=== PATIENT | female | born 1995 | race Caucasian/White ===

== ENCOUNTER 2016-10-14 15:26 | Emergency (ER) | payer MEDICAID ==
[~2016-10-14] VITALS: Ht 160 cm; Wt 56.2 kg
[2016-10-14] MEDS ORDERED: ACETAMINOPHEN 325 MG TABLET PO ONE (16:30)
[2016-10-14] MEDS ORDERED: SODIUM CHLORIDE 0.9% 1,000ML IVBOLUS ONE (16:30)
[2016-10-14] MEDS ORDERED: ONDANSETRON 2MG/ML, 2ML IVPush ONE (16:30)
[2016-10-14] MEDS ORDERED: ONDANSETRON 2MG/ML, 2ML ONE (16:32)
[2016-10-14] MEDS ORDERED: ACETAMINOPHEN 325 MG TABLET ONE (16:32)
[2016-10-14 16:35] LABS: BLOOD UREA NITROGEN 9 mg/dL (7-18)
[2016-10-14 16:38] VITALS: BP 98/70
== END 2016-10-14 17:42 | disposition home or self-care (01) ==
LOC: ED 16:58
DX: O20.0 Threatened abortion (principal); Z3A.10 10 weeks gestation of pregnancy
CPT/HCPCS: 36415; 76801; 80048; 81001; 82040; 84702; 85025; 87086; 96361; 96374; 99285; J2405; J7030; 96360

== ENCOUNTER 2017-02-15 13:57 | Outpatient (CLI) | payer MEDICAID ==
[~2017-02-15] VITALS: Ht 160 cm; Wt 61.3 kg
[2017-02-15 14:10] VITALS: BP 111/63
[2017-02-15 15:11] LABS: DAU SCREEN DISCLAIMER
[2017-02-15] MEDS ORDERED: METR70GE14 VG ×2 (16:07→16:08)
== END 2017-02-15 16:15 | disposition home or self-care (01) ==
LOC: LDOP 13:57
PROVIDERS: ATTEND Student in an Organized Health Care Education/Training Program
DX: O42.912 Preterm premature rupture of membranes, unspecified as to length of time between rupture and onset of labor, second trimester (principal); O99.342 Other mental disorders complicating pregnancy, second trimester; F32.9 Major depressive disorder, single episode, unspecified; Z3A.25 25 weeks gestation of pregnancy
CPT/HCPCS: 59025; 80307; 81003; 87210; 87491; 87591; 87808; 89060; 99211; G0463; Q0114

== ENCOUNTER 2017-03-09 20:16 | Outpatient (CLI) | payer MEDICAID ==
[~2017-03-09] VITALS: Ht 160 cm; Wt 60.0 kg
[~2017-03-09 20:16] MED LIST: METR70GE14 VG
[2017-03-09] MEDS ORDERED: DIPHENHYDRAMINE 25 MG CAPSULE ONE (20:51)
[2017-03-09] MEDS ORDERED: DIPHENHYDRAMINE 25 MG CAPSULE PO ONE (21:00)
== END 2017-03-09 21:00 | disposition home or self-care (01) ==
LOC: LDOP 20:16
PROVIDERS: ATTEND Obstetrics & Gynecology
DX: O46.93 Antepartum hemorrhage, unspecified, third trimester (principal); O99.343 Other mental disorders complicating pregnancy, third trimester; O12.03 Gestational edema, third trimester; F32.9 Major depressive disorder, single episode, unspecified; Z3A.29 29 weeks gestation of pregnancy
CPT/HCPCS: 59025; 99211; G0463

== ENCOUNTER 2017-05-15 04:11 | Outpatient (CLI) | payer MEDICAID ==
[~2017-05-15] VITALS: Ht 160 cm; Wt 72.0 kg
== END 2017-05-15 05:25 | disposition home or self-care (01) ==
LOC: LDOP 04:11
PROVIDERS: ATTEND Obstetrics & Gynecology
DX: O26.893 Other specified pregnancy related conditions, third trimester (principal); O99.343 Other mental disorders complicating pregnancy, third trimester; O62.9 Abnormality of forces of labor, unspecified; R10.9 Unspecified abdominal pain; F32.9 Major depressive disorder, single episode, unspecified; Z3A.36 36 weeks gestation of pregnancy
CPT/HCPCS: 59025; 99211; G0463

== ENCOUNTER 2017-05-15 21:38 | Inpatient (IN) | payer MEDICAID ==
[~2017-05-15] VITALS: Ht 160 cm; Wt 71.4 kg
[2017-05-15] MEDS ORDERED: OXYTOCIN 30U/ 0.9% NaCL 500ML 500 ML IV SCH (21:57)
[2017-05-15] MEDS ORDERED: LACTATED RINGERS 1,000 ML IV SCH ×2 (21:57→22:00)
[2017-05-15] MEDS ORDERED: METOCLOPRAMIDE 5 MG/ML, 2ML IV ONE (22:00)
[2017-05-15] MEDS ORDERED: LACTATED RINGERS 1,000 ML IVBOLUS ONE (22:00)
[2017-05-15] MEDS ORDERED: SODIUM CITRATE/CITRIC ACID 30 ML UDC PO ONE (22:00)
[2017-05-15] MEDS ORDERED: ONDANSETRON 2MG/ML, 2ML ONE (22:02)
[2017-05-15] MEDS ORDERED: OXYTOCIN 10 UNITS/ML, 1ML ONE (22:02)
[2017-05-15] MEDS ORDERED: CEFAZOLIN 1,000 MG ONE (22:02)
[2017-05-15] MEDS ORDERED: FENTANYL PF 100 MCG/2ML ONE (22:03)
[2017-05-15] MEDS ORDERED: HYDROmorphone 2 MG/ML, 1ML ONE (22:03)
[2017-05-15] MEDS ORDERED: NEWBORN KIT ONE (22:09)
[2017-05-15 22:23] LABS: HEMATOCRIT 28.9 % (34.6-47.8); HEMOGLOBIN 9.5 g/dL (11.7-16.4); WHITE BLOOD COUNT 8.3 x10^3/uL (4.5-13.2)
[2017-05-16] MEDS ORDERED: MISOPROSTOL 200 MCG TABLET PR PRN
[2017-05-16] MEDS ORDERED: ONDANSETRON 2MG/ML, 2ML IV PRN
[2017-05-16] MEDS ORDERED: OXYcodone/APAP 5/325MG TABLET PO PRN
[2017-05-16] MEDS ORDERED: METHYLERGONOVINE 0.2 MG/ML IM PRN
[2017-05-16] MEDS ORDERED: morphine SULFATE 10 MG/ML, 1ML IVPush PRN
[2017-05-16] MEDS ORDERED: ACETAMINOPHEN 325 MG TABLET PO PRN
[2017-05-16] MEDS ORDERED: METOCLOPRAMIDE 5 MG/ML, 2ML ONE (00:02)
[2017-05-16] MEDS ORDERED: DIPHENHYDRAMINE 50 MG/ML, 1ML ONE (00:02)
[2017-05-16] MEDS ORDERED: KETOROLAC 30 MG/1 ML ONE (00:02)
[2017-05-16] MEDS ORDERED: OXYTOCIN 30U/ 0.9% NaCL 500ML 500 ML ONE (00:03)
[2017-05-16] MEDS: KETOROLAC 30 MG/1 ML IV SCH ×5 (00:17→22:10)
[2017-05-16 00:38] LABS: DAU SCREEN DISCLAIMER
[2017-05-16 01:00] VITALS: BP 86/50
[2017-05-16] MEDS: morphine SULFATE 10 MG/ML, 1ML IVPush PRN ×2 (01:39→05:20)
[2017-05-16] MEDS: OXYcodone/APAP 5/325MG TABLET PO PRN ×4 (03:07→19:14)
[2017-05-16 05:00] VITALS: BP 88/51
[2017-05-16] MEDS: LACTATED RINGERS 1,000 ML IV SCH ×5 (07:00→17:00)
[2017-05-16] MEDS: OXYTOCIN 30U/ 0.9% NaCL 500ML 500 ML IV SCH ×2 (07:00→17:00)
[2017-05-16 07:17] LABS: HEMATOCRIT 26.6 % (34.6-47.8); HEMOGLOBIN 8.7 g/dL (11.7-16.4); WHITE BLOOD COUNT 10.3 x10^3/uL (4.5-13.2)
[2017-05-16 07:20] VITALS: BP 83/50
[2017-05-16] MEDS: PRENATAL VIT/IRON/FA 1 EACH TABLET PO SCH (07:58)
[2017-05-16] MEDS: DOCUSATE 100 MG CAPSULE PO PRN ×2 (09:56→19:14)
[2017-05-16 12:02] VITALS: BP 93/53
[2017-05-16 16:08] VITALS: BP 91/51
[2017-05-16 21:00] VITALS: BP 91/53
[2017-05-17] MEDS: OXYTOCIN 30U/ 0.9% NaCL 500ML 500 ML IV SCH (03:00)
[2017-05-17] MEDS: LACTATED RINGERS 1,000 ML IV SCH ×2 (03:00)
[2017-05-17] MEDS: OXYcodone/APAP 5/325MG TABLET PO PRN ×4 (03:43→20:53)
[2017-05-17] MEDS: KETOROLAC 30 MG/1 ML IV SCH ×3 (04:04→10:03)
[2017-05-17 07:55] VITALS: BP 112/68
[2017-05-17] MEDS: DOCUSATE 100 MG CAPSULE PO PRN ×2 (10:03→20:52)
[2017-05-17] MEDS: PRENATAL VIT/IRON/FA 1 EACH TABLET PO SCH (10:03)
[2017-05-17] MEDS: IBUPROFEN 600 MG TABLET PO PRN ×3 (10:17→23:07)
[2017-05-17 20:40] VITALS: BP 103/64
[2017-05-18] MEDS: IBUPROFEN 600 MG TABLET PO PRN (06:23)
[2017-05-18] MEDS: OXYcodone/APAP 5/325MG TABLET PO PRN (06:23)
[2017-05-18 07:30] VITALS: BP 97/65
[2017-05-18] MEDS: PRENATAL VIT/IRON/FA 1 EACH TABLET PO SCH (07:49)
[2017-05-18] MEDS: DOCUSATE 100 MG CAPSULE PO PRN (07:49)
[2017-05-18] MEDS ORDERED: OXYC-302 PO (13:32)
[2017-05-18] MEDS ORDERED: IBUP-1222 PO (13:33)
== END 2017-05-18 14:50 | disposition home or self-care (01) | DRG 766 ==
LOC: LDOP 21:38 → LDIP 21:57 → 2NW 05-16 00:53
PROVIDERS: ADMIT Obstetrics & Gynecology; ATTEND Obstetrics & Gynecology
PROC: 10D00Z1 Extraction of Products of Conception, Low, Open Approach (ICD-10-PCS; principal; 2017-05-15)
DX: O34.211 Maternal care for low transverse scar from previous cesarean delivery (principal); O32.1XX0 Maternal care for breech presentation, not applicable or unspecified; Z37.0 Single live birth; Z3A.38 38 weeks gestation of pregnancy; Z88.0 Allergy status to penicillin
CPT/HCPCS: 36415; 80307; 82803; 85025; 86850; 86900; 86923; J0690; J1170; J1885; J2405; J3010; C1765; G0479; J2270; J2590; J2765; J7120

== ENCOUNTER 2018-06-24 02:58 | Inpatient (IN) | payer MEDICAID ==
[~2018-06-24] VITALS: Ht 160 cm; Wt 74.0 kg
[~2018-06-24 02:58] MED LIST changes: +IBUP-1222 PO; +OXYC-302 PO
[2018-06-24] MEDS ORDERED: METOCLOPRAMIDE 5 MG/ML, 2ML IV ONE (03:00)
[2018-06-24] MEDS ORDERED: LACTATED RINGERS 1,000 ML IVBOLUS ONE (03:00)
[2018-06-24] MEDS ORDERED: SODIUM CITRATE/CITRIC ACID 30 ML UDC PO ONE (03:00)
[2018-06-24] MEDS ORDERED: OXYTOCIN 30U/ 0.9% NaCL 500ML 500 ML IV SCH (03:00)
[2018-06-24] MEDS ORDERED: LACTATED RINGERS 1,000 ML IV SCH ×3 (03:00→05:45)
[2018-06-24] MEDS ORDERED: NEWBORN KIT ONE (03:29)
[2018-06-24] MEDS ORDERED: METOCLOPRAMIDE 5 MG/ML, 2ML ONE (03:30)
[2018-06-24] MEDS ORDERED: OXYTOCIN 30U/ 0.9% NaCL 500ML 500 ML ONE ×2 (03:30→05:42)
[2018-06-24] MEDS ORDERED: SODIUM CITRATE/CITRIC ACID 30 ML UDC ONE (03:30)
[2018-06-24 03:34] LABS: BASOPHILS # (AUTO) 0.03 x10^3/uL (0-0.1); BASOPHILS % (AUTO) 1 % (0-1); EOSINOPHILS # (AUTO) 0.08 x10^3/uL (0-0.4); EOSINOPHILS % (AUTO) 2 % (1-7); LYMPHOCYTES % (AUTO) 31 % (22-44); MD NO; MEAN CORPUSCULAR HEMOGLOBIN 26.8 pg (27.0-34.8); MEAN CORPUSCULAR HGB CONC 33.7 g/dL (32.4-35.8); MEAN CORPUSCULAR VOLUME 79.5 fL (80-100); MEAN PLATELET VOLUME 9.6 fL (7.4-10.4); MONOCYTES # (AUTO) 0.39 x10^3/uL (0.2-0.8); MONOCYTES % (AUTO) 8 % (2-9); NEUTROPHILS # (AUTO) 3.09 x10^3/uL (1.8-6.8); NEUTROPHILS % (AUTO) 60 % (42-75); PLATELET COUNT 225 x10^3/uL (130-400); RED BLOOD COUNT 3.91 x10^6/uL (3.82-5.3); RED CELL DISTRIBUTION WIDTH 16.6 % (9.6-15.2)
[2018-06-24] MEDS ORDERED: ONDANSETRON 2MG/ML, 2ML ONE ×2 (03:54→06:04)
[2018-06-24] MEDS ORDERED: OXYTOCIN 10 UNITS/ML, 1ML ONE (03:54)
[2018-06-24] MEDS ORDERED: FENTANYL PF 100 MCG/2ML ONE (03:54)
[2018-06-24] MEDS ORDERED: CEFAZOLIN 1,000 MG ONE (03:54)
[2018-06-24] MEDS ORDERED: HYDROmorphone 2 MG/ML, 1ML ONE (03:55)
[2018-06-24] MEDS ORDERED: SODIUM CHLORIDE 0.9% PF 10ML ONE ×2 (03:55)
[2018-06-24] MEDS ORDERED: KETOROLAC 30 MG/1 ML ONE (05:55)
[2018-06-24] MEDS ORDERED: METHYLERGONOVINE 0.2 MG/ML IM PRN (06:00)
[2018-06-24] MEDS ORDERED: MISOPROSTOL 200 MCG TABLET PR PRN (06:00)
[2018-06-24] MEDS ORDERED: ACETAMINOPHEN 325 MG TABLET PO PRN (06:00)
[2018-06-24] MEDS ORDERED: CARBOPROST TROMETHAMINE 250 MCG/ML, 1ML IM PRN (06:00)
[2018-06-24] MEDS ORDERED: GLYCERIN ADULT SUPP PR PRN (06:00)
[2018-06-24] MEDS ORDERED: BISACODYL 10 MG SUPP PR PRN (06:00)
[2018-06-24] MEDS ORDERED: IBUPROFEN 600 MG TABLET PO PRN (06:00)
[2018-06-24] MEDS ORDERED: SIMETHICONE 80 MG CHEW TAB PO PRN (06:00)
[2018-06-24] MEDS ORDERED: DIPHENHYDRAMINE 50 MG/ML, 1ML ONE (06:06)
[2018-06-24] MEDS: KETOROLAC 30 MG/1 ML IV SCH ×3 (06:06→18:33)
[2018-06-24] MEDS: OXYTOCIN 30U/ 0.9% NaCL 500ML 500 ML IV SCH ×2 (06:16→15:45)
[2018-06-24] MEDS: LACTATED RINGERS 1,000 ML IV SCH ×2 (06:16→15:45)
[2018-06-24] MEDS ORDERED: ONDANSETRON 2MG/ML, 2ML IVPush ONE (06:30)
[2018-06-24] MEDS ORDERED: DIPHENHYDRAMINE 50 MG/ML, 1ML IVPush ONE (06:30)
[2018-06-24 08:00] VITALS: BP 98/63
[2018-06-24] MEDS: OXYcodone/APAP 5/325MG TABLET PO PRN (08:26)
[2018-06-24] MEDS: PRENATAL VIT/IRON/FA 1 EACH TABLET PO SCH (09:00)
[2018-06-24] MEDS: OXYcodone IR 5MG TABLET PO PRN ×4 (10:45→23:22)
[2018-06-24 13:02] VITALS: BP 88/50
[2018-06-24 14:14] LABS: MEAN CORPUSCULAR HEMOGLOBIN 26.5 pg (27.0-34.8); MEAN CORPUSCULAR HGB CONC 33.4 g/dL (32.4-35.8); MEAN CORPUSCULAR VOLUME 79.3 fL (80-100); MEAN PLATELET VOLUME 9.5 fL (7.4-10.4); PLATELET COUNT 175 x10^3/uL (130-400); RED BLOOD COUNT 3.36 x10^6/uL (3.82-5.3); RED CELL DISTRIBUTION WIDTH 16.4 % (9.6-15.2)
[2018-06-24 14:45] LABS: BASOPHILS # (AUTO) 0.03 x10^3/uL (0-0.1); BASOPHILS % (AUTO) 0 % (0-1); EOSINOPHILS # (AUTO) 0.01 x10^3/uL (0-0.4); EOSINOPHILS % (AUTO) 0 % (1-7); LYMPHOCYTES # (AUTO) 1.21 x10^3/uL (1-3.4); LYMPHOCYTES % (AUTO) 16 % (22-44); MD SCAN; MONOCYTES # (AUTO) 0.47 x10^3/uL (0.2-0.8); MONOCYTES % (AUTO) 6 % (2-9); NEUTROPHILS # (AUTO) 5.73 x10^3/uL (1.8-6.8); NEUTROPHILS % (AUTO) 77 % (42-75)
[2018-06-24 18:27] VITALS: BP 89/57
[2018-06-24 20:00] VITALS: BP 95/60
[2018-06-25] MEDS: KETOROLAC 30 MG/1 ML IV SCH ×4 (00:34→19:29)
[2018-06-25 01:45] VITALS: BP 91/53
[2018-06-25] MEDS: OXYTOCIN 30U/ 0.9% NaCL 500ML 500 ML IV SCH ×3 (01:45→21:45)
[2018-06-25] MEDS: LACTATED RINGERS 1,000 ML IV SCH ×3 (01:45→21:45)
[2018-06-25 05:15] VITALS: BP 96/56
[2018-06-25] MEDS: OXYcodone IR 5MG TABLET PO PRN ×2 (07:00→12:14)
[2018-06-25 08:05] VITALS: BP 92/62
[2018-06-25] MEDS: PRENATAL VIT/IRON/FA 1 EACH TABLET PO SCH (12:14)
[2018-06-25] MEDS: DOCUSATE 100 MG CAPSULE PO PRN ×2 (12:14→19:29)
[2018-06-25] MEDS ORDERED: ONDANSETRON 4 MG TABLET PO PRN (14:30)
[2018-06-25] MEDS ORDERED: ONDANSETRON 2MG/ML, 2ML IVPush PRN (14:30)
[2018-06-25 15:13] LABS: BASOPHILS # (AUTO) 0.04 x10^3/uL (0-0.1); BASOPHILS % (AUTO) 1 % (0-1); EOSINOPHILS # (AUTO) 0.81 x10^3/uL (0-0.4); EOSINOPHILS % (AUTO) 11 % (1-7); LYMPHOCYTES # (AUTO) 1.04 x10^3/uL (1-3.4); LYMPHOCYTES % (AUTO) 14 % (22-44); MD NO; MEAN CORPUSCULAR HEMOGLOBIN 27.2 pg (27.0-34.8); MEAN CORPUSCULAR HGB CONC 33.1 g/dL (32.4-35.8); MEAN CORPUSCULAR VOLUME 82.3 fL (80-100); MEAN PLATELET VOLUME 9.8 fL (7.4-10.4); MONOCYTES # (AUTO) 0.44 x10^3/uL (0.2-0.8); MONOCYTES % (AUTO) 6 % (2-9); NEUTROPHILS # (AUTO) 5.01 x10^3/uL (1.8-6.8); NEUTROPHILS % (AUTO) 68 % (42-75); PLATELET COUNT 175 x10^3/uL (130-400); RED BLOOD COUNT 3.16 x10^6/uL (3.82-5.3); RED CELL DISTRIBUTION WIDTH 16.9 % (9.6-15.2)
[2018-06-25] MEDS: OXYcodone/APAP 5/325MG TABLET PO PRN (19:29)
[2018-06-25 19:45] VITALS: BP 92/59
[2018-06-26] MEDS: KETOROLAC 30 MG/1 ML IV SCH (01:23)
[2018-06-26] MEDS ORDERED: IBUP-1222 PO (06:50)
[2018-06-26] MEDS ORDERED: OXYC-302 PO (06:50)
[2018-06-26] MEDS ORDERED: FERR325T5 PO (06:52)
[2018-06-26] MEDS: PRENATAL VIT/IRON/FA 1 EACH TABLET PO SCH (07:46)
[2018-06-26] MEDS: OXYcodone/APAP 5/325MG TABLET PO PRN (07:46)
[2018-06-26 08:00] VITALS: BP 96/63
== END 2018-06-26 13:50 | disposition home or self-care (01) | DRG 785 ==
LOC: LDIP 02:58 → 2NW 07:04
PROVIDERS: ADMIT Obstetrics & Gynecology; ATTEND Obstetrics & Gynecology
PROC: 10D00Z1 Extraction of Products of Conception, Low, Open Approach (ICD-10-PCS; principal; 2018-06-24)
PROC: 0UB70ZZ Excision of Bilateral Fallopian Tubes, Open Approach (ICD-10-PCS; 2018-06-24)
PROC: 0DNW0ZZ Release Peritoneum, Open Approach (ICD-10-PCS; 2018-06-24)
DX: O34.211 Maternal care for low transverse scar from previous cesarean delivery (principal); O99.344 Other mental disorders complicating childbirth; F32.9 Major depressive disorder, single episode, unspecified; Z37.0 Single live birth; Z3A.39 39 weeks gestation of pregnancy; Z82.49 Family history of ischemic heart disease and other diseases of the circulatory system; F41.9 Anxiety disorder, unspecified; O99.89 Other specified diseases and conditions complicating pregnancy, childbirth and the puerperium; N73.6 Female pelvic peritoneal adhesions (postinfective); Z88.0 Allergy status to penicillin
CPT/HCPCS: 36415; 85025; 86850; 86900; 88302; G0378; J0690; J1170; J1885; J2405; J3010; J1200; J2590; J2765; J7120

== ENCOUNTER 2019-01-30 08:29 | Emergency (ER) | payer MEDICAID ==
[~2019-01-30] VITALS: Ht 160 cm; Wt 61.8 kg
[~2019-01-30 08:29] MED LIST changes: +FERR325T5 PO
[2019-01-30 08:35] VITALS: BP 102/61
--- NOTE | 2019-01-30 09:42 | NUR ---
Patient left prior to DC instructions. Patient left without abx rx.
--- NOTE | 2019-01-30 09:45 | NUR ---
[place] in [place] - 01/30/19 at 0948 by MATT Patient/Caregiver given discharge instructions and they have confirmed that they understand the instructions. Patient ambulatory with steady gait.
== END 2019-01-30 09:45 | disposition home or self-care (01) ==
LOC: ED 09:40
DX: H10.022 Other mucopurulent conjunctivitis, left eye (principal)
CPT/HCPCS: 99283